=== PATIENT | female | born 1995 | race Two or more races ===

== ENCOUNTER 2019-06-25 06:10 | Emergency (ER) | payer MEDICAID, OTHER ==
[~2019-06-25] VITALS: Ht 157.5 cm; Wt 62.5 kg
[2019-06-25] MEDS ORDERED: ACETAMINOPHEN 500 MG TABLET ONE (06:47)
[2019-06-25 06:56] LABS: BASOPHILS % (AUTO) 0 % (0-1); EOSINOPHILS # (AUTO) 0.02 x10^3/uL (0-0.4); EOSINOPHILS % (AUTO) 1 % (1-7); LYMPHOCYTES # (AUTO) 0.41 x10^3/uL (1-3.4); LYMPHOCYTES % (AUTO) 11 % (22-44); MD NO; MEAN CORPUSCULAR HEMOGLOBIN 29.5 pg (27.0-34.8); MEAN CORPUSCULAR HGB CONC 32.8 g/dL (32.4-35.8); MEAN CORPUSCULAR VOLUME 90.1 fL (80-100); MEAN PLATELET VOLUME 7.9 fL (7.4-10.4); MONOCYTES # (AUTO) 0.27 x10^3/uL (0.2-0.8); MONOCYTES % (AUTO) 7 % (2-9); NEUTROPHILS # (AUTO) 3.09 x10^3/uL (1.8-6.8); NEUTROPHILS % (AUTO) 81 % (42-75); PLATELET COUNT 239 x10^3/uL (130-400); RED BLOOD COUNT 4.41 x10^6/uL (3.82-5.3); RED CELL DISTRIBUTION WIDTH 14.1 % (9.6-15.2)
[2019-06-25] MEDS ORDERED: SODIUM CHLORIDE 0.9% 1,000ML IVBOLUS ONE (07:00)
[2019-06-25] MEDS ORDERED: ACETAMINOPHEN 500 MG TABLET PO ONE (07:00)
[2019-06-25] MEDS ORDERED: SODIUM CHLORIDE FLUSH 10ML SYR IVF ONE (07:00)
--- NOTE | 2019-06-25 07:02 | NUR ---
ASKED PT TO REMOVE STOCKING HAT DUE TO FEVER. COLD WASH CLOTH APPLIED TO FOREHEAD.
--- NOTE | 2019-06-25 07:07 | NUR ---
REPORT RECEIVED FROM JESSI BEAL. PLAN OF CARE DISCUSSED.
[2019-06-25 07:08] LABS: ALANINE AMINOTRANSFERASE 27 U/L (12-78); ALBUMIN 4.1 g/dL (3.4-5.0); ANION GAP 7 mmol/L (5-15); CALCIUM 8.1 mg/dL (8.5-10.1); CHLORIDE 106 mmol/L (98-107); CREATININE 0.98 mg/dL (0.55-1.02)
[2019-06-25 07:12] LABS: ALKALINE PHOSPHATASE 63 U/L (45-117); BILIRUBIN,TOTAL 0.2 mg/dL (0.2-1.0); TOTAL PROTEIN 7.8 g/dL (6.4-8.2)
--- NOTE | 2019-06-25 07:13 | NUR ---
THIS IS A 24 YO FEMALE COMING IN WITH DX WITH FLU B AT [facility] YESTERDAY. STATES "I WENT THERE FOR KIDNEY PAIN, THEY DIDN'T GIVE ME ANYTHING AND I AM STILL HAVING A FEVER AND KIDNEY PAIN." PATIENT APPEARS TEARY AND FATIGUED, CYCLE BP Q1HR, CONTINUOUS SPO2. NEEDS ADDRESSED. TOOK TYLENOL AT 0200, NO IBUPROFEN.
[2019-06-25 07:17] LABS: MICROSCOPIC AUTO
[2019-06-25 07:21] LABS: CULTURE INDICATED? YES
--- NOTE | 2019-06-25 07:28 | NUR ---
PATIENT COMPLAINS OF LOW BACK PAIN AND EPIGASTRIC PAIN, MD NOTIFIED. TYLENOL GIVEN AT 0700, PATIENT EDUCATED ON MEDICATION.
--- NOTE | 2019-06-25 07:40 | NUR ---
PATIENT DESAT WHILE ASLEEP TO 86%, PLACED ON 1L NC BACK UP TO 98%.
--- NOTE | 2019-06-25 08:30 | NUR ---
PT UP TO RESTROOM
--- NOTE | 2019-06-25 08:37 | NUR ---
PT BACK IN BED, VSS, IVF RUNNING.
[2019-06-25 08:38] VITALS: BP 104/62
== END 2019-06-25 09:22 | disposition home or self-care (01) ==
LOC: ED 08:50
DX: J10.1 Influenza due to other identified influenza virus with other respiratory manifestations (principal); M79.10 Myalgia, unspecified site
CPT/HCPCS: 36415; 71046; 80053; 81001; 83605; 84703; 85025; 87077; 87086; 87186; 99284; J7030

== ENCOUNTER 2019-07-20 12:34 | Emergency (ER) | payer OTHER ==
[~2019-07-20] VITALS: Ht 157.5 cm; Wt 61.6 kg
[2019-07-20 12:39] VITALS: BP 122/80
[2019-07-20 13:26] LABS: BASOPHILS # (AUTO) 0.04 x10^3/uL (0-0.1); BASOPHILS % (AUTO) 0 % (0-1); EOSINOPHILS # (AUTO) 0.21 x10^3/uL (0-0.4); EOSINOPHILS % (AUTO) 3 % (1-7); LYMPHOCYTES % (AUTO) 17 % (22-44); MD NO; MEAN CORPUSCULAR HEMOGLOBIN 28.9 pg (27.0-34.8); MEAN CORPUSCULAR HGB CONC 32.8 g/dL (32.4-35.8); MEAN CORPUSCULAR VOLUME 88.1 fL (80-100); MEAN PLATELET VOLUME 7.7 fL (7.4-10.4); MONOCYTES # (AUTO) 0.37 x10^3/uL (0.2-0.8); MONOCYTES % (AUTO) 5 % (2-9); NEUTROPHILS # (AUTO) 6.28 x10^3/uL (1.8-6.8); NEUTROPHILS % (AUTO) 76 % (42-75); PLATELET COUNT 337 x10^3/uL (130-400); RED BLOOD COUNT 4.27 x10^6/uL (3.82-5.3); RED CELL DISTRIBUTION WIDTH 14.4 % (9.6-15.2)
[2019-07-20 13:37] LABS: MICROSCOPIC AUTO
[2019-07-20 13:38] LABS: ALANINE AMINOTRANSFERASE 18 U/L (12-78); ALBUMIN 3.5 g/dL (3.4-5.0); ANION GAP 8 mmol/L (5-15); CALCIUM 8.4 mg/dL (8.5-10.1); CHLORIDE 110 mmol/L (98-107)
[2019-07-20 13:40] LABS: CULTURE INDICATED? YES
[2019-07-20 13:42] LABS: ALKALINE PHOSPHATASE 67 U/L (45-117); BILIRUBIN,TOTAL 0.3 mg/dL (0.2-1.0); TOTAL PROTEIN 7.6 g/dL (6.4-8.2)
--- NOTE | 2019-07-20 14:21 | NUR ---
PROVIDER IN ROOM TO DISCUSS POC WITH PT. PT IN BED AT THIS TIME. FAMILY AT BEDSIDE.
[2019-07-20] MEDS ORDERED: CEFTRIAXONE 1,000 MG ONE (14:27)
[2019-07-20] MEDS ORDERED: CEFTRIAXONE 1,000 MG IM ONE (14:30)
--- NOTE | 2019-07-20 14:53 | NUR ---
Patient given discharge instructions and Rx, they have confirmed that they understand the instructions. Patient ambulatory with steady gait.
== END 2019-07-20 14:54 | disposition home or self-care (01) ==
LOC: ED 14:06
DX: N10 Acute pyelonephritis (principal)
CPT/HCPCS: 36415; 76830; 80053; 81001; 83690; 84703; 85025; 87077; 87086; 87186; 99284; J0696; 96372

== ENCOUNTER 2019-08-15 09:34 | Emergency (ER) | payer OTHER ==
[~2019-08-15] VITALS: Ht 160 cm; Wt 62.5 kg
--- NOTE | 2019-08-15 10:01 | NUR ---
AIR POLLUTION COMPLIANCE INSPECTOR: PT TO ROOM FROM [facility]
[2019-08-15] MEDS ORDERED: DIPHENHYDRAMINE 50 MG/ML, 1ML ONE (10:24)
[2019-08-15] MEDS ORDERED: DIPHENHYDRAMINE 50 MG/ML, 1ML IM ONE (10:30)
[2019-08-15] MEDS ORDERED: FAMOTIDINE 20 MG TABLET PO ONE (10:30)
--- NOTE | 2019-08-15 10:39 | NUR ---
PT REPORTS HAVING A REACTION TO ABX SHE WAS GIVEN FOR UTI AND KIDNEY INFECTION. SHE WAS GIVEN CEPHALEXIN. PT SAYS SHES TAKEN 5 COURSES OF ABX AND UTI HAS BEEN RESISTENT TO ALL OF THEM. BLANKET PROVIDED.
[2019-08-15 10:55] LABS: BASOPHILS # (AUTO) 0.02 x10^3/uL (0-0.1); BASOPHILS % (AUTO) 0 % (0-1); EOSINOPHILS # (AUTO) 0.09 x10^3/uL (0-0.4); EOSINOPHILS % (AUTO) 2 % (1-7); LYMPHOCYTES # (AUTO) 0.63 x10^3/uL (1-3.4); LYMPHOCYTES % (AUTO) 15 % (22-44); MD NO; MEAN CORPUSCULAR HGB CONC 33.1 g/dL (32.4-35.8); MEAN CORPUSCULAR VOLUME 84.8 fL (80-100); MEAN PLATELET VOLUME 7.7 fL (7.4-10.4); MONOCYTES # (AUTO) 0.17 x10^3/uL (0.2-0.8); MONOCYTES % (AUTO) 4 % (2-9); NEUTROPHILS # (AUTO) 3.41 x10^3/uL (1.8-6.8); NEUTROPHILS % (AUTO) 79 % (42-75); PLATELET COUNT 288 x10^3/uL (130-400); RED BLOOD COUNT 4.34 x10^6/uL (3.82-5.3); RED CELL DISTRIBUTION WIDTH 14.5 % (9.6-15.2)
[2019-08-15 10:58] LABS: MICROSCOPIC INDICATED
[2019-08-15 11:01] LABS: ALANINE AMINOTRANSFERASE 30 U/L (12-78); ALBUMIN 3.8 g/dL (3.4-5.0); ANION GAP 5 mmol/L (5-15); CALCIUM 8.6 mg/dL (8.5-10.1); CHLORIDE 109 mmol/L (98-107); CREATININE 0.76 mg/dL (0.55-1.02)
[2019-08-15 11:05] LABS: ALKALINE PHOSPHATASE 58 U/L (45-117); BILIRUBIN,TOTAL 0.3 mg/dL (0.2-1.0); TOTAL PROTEIN 7.4 g/dL (6.4-8.2)
[2019-08-15 11:08] LABS: CULTURE INDICATED? YES
[2019-08-15 11:30] VITALS: BP 100/59
--- NOTE | 2019-08-15 11:30 | NUR ---
PT RESTING ON HOSPITAL BED AWAITING LAB RESULTS. NO REQUESTS AT THIS TIME
== END 2019-08-15 12:19 | disposition home or self-care (01) ==
LOC: ED 11:55
DX: N30.00 Acute cystitis without hematuria (principal); R21 Rash and other nonspecific skin eruption; B96.29 Other Escherichia coli [E. coli] as the cause of diseases classified elsewhere
CPT/HCPCS: 36415; 80053; 81001; 84703; 85025; 87077; 87086; 87186; 96372; 99283; J1200